=== PATIENT | female | born 1960 | race Caucasian/White ===

== ENCOUNTER → 2020-09-26 17:18 | Outpatient (CLI) | payer OTHER, SELFPAY ==
--- NOTE | ~2020-09-26 | XR_ITS ---
XR knee RT 3V 09/26/2020 18:58 Indication: Right knee pain Procedure: 3 views right knee Comparison: No prior studies for comparison. Findings: No fracture, subluxation or dislocation. There is a moderate joint effusion. Mild osteoarth ritis of the patellofemoral compartment. No foreign bodies. Impression: 1: Mild patellofemoral compartment osteoarthritis. 2: Moderate joint effusion. Reviewed, dictated and finalized at location A. Impression: 1: Mild patellofemoral compartment osteoarthritis. 2: Moderate joint effusion.
== END ==
PROVIDERS: PCP Family Medicine; Visit Provider Nurse Practitioner Family
DX: M17.11 Unilateral primary osteoarthritis, right knee (principal); M25.461 Effusion, right knee
CPT/HCPCS: 73562

== ENCOUNTER → 2021-06-14 08:11 | Outpatient (CLI) | payer OTHER, SELFPAY ==
--- NOTE | ~2021-06-14 | XR_ITS ---
XR foot LT min 3V DATE: 06/14/2021 08:32 INDICATION: Left foot pain TECHNIQUE: 4 views COMPARISON: None FINDINGS: There is plantar calcaneal enthesopathy without associated erosive change or periostitis. There is mild osteoarthritis at the first metatarsophalangeal joint. No fracture, dislocation, periosteal reaction or bone destruction. IMPRESSION: Plantar calcaneal enthesopathy Mild osteoarthritis at first metatarsophalangeal joint Reviewed, dictated and finalized at location A.
== END ==
PROVIDERS: PCP Nurse Practitioner Family; Visit Provider Nurse Practitioner Family
DX: M77.32 Calcaneal spur, left foot (principal); M19.072 Primary osteoarthritis, left ankle and foot
CPT/HCPCS: 73630

== ENCOUNTER 2021-07-22 07:37 | Outpatient (CLI) | payer OTHER, SELFPAY ==
--- NOTE | ~2021-07-22 | MR_ITS ---
EXAMINATION: MR foot LT wo/w con DATE: 07/22/2021 08:39 INDICATION: Soft tissue mass at the left foot third intermetatarsal space TECHNIQUE: Magnetic resonance imaging (MRI) of the left fore/mid foot was performed without and with 15 mL Multihance intravenous contrast. Sequences included axial, sagittal and coronal T1-weighted FSE , sagittal fluid sensitive FSE STIR, coronal PD-weighted FS FSE, axial T2-weighted FS FSE, axial T1-w eighted FS FSE and axial, sagittal and coronal T1-weighted FS FSE. COMPARISON: Left foot radiographs dated 06/14/2021 FINDINGS: Bone alignment is normal. No fracture or pathologic marrow replacing process. Severe osteoarthritis a t the articulation between the head of the first metatarsal and the fibular sesamoid with associated underlying subarticular edema-like marrow signal change and cystlike change at the plantar/lateral si de of the head of the first metatarsal. Additional mild marrow edema at the plantar aspect of the cub oid along the tunnel of the peroneus longus tendon. Small periarticular erosion versus cystic change at the medial aspect of the head of the first metatarsal. Additional mild osteoarthritis at the remai nder of the first metatarsophalangeal joint as well as a few tarsal metatarsal and interphalangeal edwina ints. Otherwise bone marrow signal throughout. No fracture or pathologic marrow replacing process. Th ere is a masslike region of globular decreased signal situated along the dorsolateral aspect of the t hird proximal phalanx. The lesion measures 2.8 cm proximal to distal, 1.7 cm dorsal to plantar and 1. 3 cm medial to lateral. No significant associated enhancement. The mass is also located more dorsal a nd distal stomach would be expected for a Pardo's neuroma. The Lisfranc ligament complex as well as the collateral ligament complex at the metatarsophalangeal and interphalangeal joints are normal. The flexor and extensor tendons are normal. Intrinsic musculature of the foot is unremarkable. IMPRESSION: 1. Nonspecific 2.8 x 1.7 x 1.3 cm relatively low signal intensity mass in the soft tissues lateral to the third proximal phalanx. No evident corresponding calcified matrix or bone lesion on the prior ra diographs. Differential would include gouty tophus, giant cell tumor of the tendon sheath (pigmented villonodular synovitis PVNS of the tendon sheath), foreign body granuloma or neoplasm, either benign or malignant such as synovial sarcoma. 2. Polyarticular osteoarthritis in the mid and forefoot, severe at the articulation of the first meta tarsal and fibular sesamoid, otherwise mild. Reviewed, dictated and finalized at location A. IMPRESSION: 1. Nonspecific 2.8 x 1.7 x 1.3 cm relatively low signal intensity mass in the s oft tissues lateral to the third proximal phalanx. No evident corresponding eileen cified matrix or bone lesion on the prior radiographs. Differential would inclu de gouty tophus, giant cell tumor of the tendon sheath (pigmented villonodular synovitis PVNS of the tendon sheath), foreign body granuloma or neoplasm, eithe r benign or malignant such as synovial sarcoma. 2. Polyarticular osteoarthritis in the mid and forefoot, severe at the articula tion of the first metatarsal and fibular sesamoid, otherwise mild.
[2021-07-22 08:10] LABS: Estimated Glomerular Filt Rate > 60
== END 2021-07-22 07:38 ==
PROVIDERS: PCP Family Medicine; Visit Provider Podiatrist Foot & Ankle Surgery
DX: R22.42 Localized swelling, mass and lump, left lower limb (principal); M19.072 Primary osteoarthritis, left ankle and foot
CPT/HCPCS: 73720; A9577

== ENCOUNTER → 2021-09-05 12:09 | Outpatient (CLI) | payer OTHER, SELFPAY ==
--- NOTE | ~2021-09-05 | MM_ITS ---
EXAMINATION: MM screening [facility] BI w felix HISTORY: Screening TECHNIQUE: Craniocaudal and mediolateral oblique 3-D tomosynthesis images were obtained and synthetic 2-D images were generated. CAD analysis was submitted and interpreted. COMPARISON: 09/09/2012 BREAST PARENCHYMAL COMPOSITION: There are scattered areas of fibroglandular density. FINDINGS: There is no evidence of suspicious mass, calcification, or architectural distortion to sugg est malignancy in either breast. There has been no suspicious interval change. IMPRESSION: 1. No mammographic evidence of malignancy. 2. Recommend routine screening mammography in one year. BI-RADS Category 1: Negative Reviewed, dictated and finalized at location A.
--- NOTE | ~2021-09-05 | DEXA_ITS ---
Bone Density Report Name: RAFAEL MADSEN Age: 60 Sex: Female Ethnicity: White Date of : 1960 Indication: postmenopausal; screening for osteoporosis; height loss; prior fracture; hysterectomy; Referring Provider: Ashlee Viveros Study: Bone densitometry was performed. Exam Date: September 05, 2021 Accession number: [id number] Bone Density: Region BMD T-score Z-score Classification AP Spine (L1-L4) 0.910 -1.2 0.2 Osteopenia Femoral Neck (Left) 0.792 -0.5 0.8 Normal Total Hip (Left) 0.874 -0.6 0.4 Normal Femoral Neck (Right) 0.805 -0.4 0.9 Normal Total Hip (Right) 0.881 -0.5 0.5 Normal Total Hip Mean 0.878 -0.6 0.5 Normal World Health Organization criteria for BMD impression classify patients as: Normal (T-score at or above -1.0), Osteopenia (T-score between -1.0 and -2.5), or Osteoporosis (T-score at or below -2.5). 10-year Fracture Risk: FRAX not reported because: Prior hip or vertebral fracture Clinical Information Provided by Patient: Have had a previous hip or vertebral fracture Has had a low trauma fracture Has used the following medications: Vitamin D Has the following medical conditions: Hysterectomy Patient maximum height was 69.5 Menopause Age: 28 Drinks caffeinated beverages Onset of menses at age 12 Number of children 1 Impression: The patient has low bone mass, based on the Total Spine T-score. The patient has risk factors, including: previous fracture. Discussion: INCREASED RISK OF FRACTURE DUE TO HISTORY OF FRACTURE. The patient's previous fracture puts the patient at high risk of a future fracture. In untreated patients, the risk of osteoporotic fracture increases approximately two-fold for each 1.0 SD decrease in T-score. Low bone density is not the only risk factor for fracture; also consider factors such as patient's age, frailty or poor health, risk of falling, risk of injury, previous osteoporotic fracture, family history of osteoporosis, cigarette smoking, low body weight, etc. Not everyone with a low trauma fracture has osteoporosis; osteomalacia and other metabolic bone disorders should also be considered. Patients who have osteoporosis should be evaluated for specific diseases and conditions (secondary causes) that may cause or contribute to bone loss and fracture risk. National Osteoporosis Foundation (NOF) recommends pharmacologic intervention for patients with a prior hip or vertebral fracture regardless of BMD T-score. The patient should follow a healthful lifestyle (good nutrition with adequate calcium and vitamin D, and appropriate weight-bearing exercise). Follow-Up: Consider a repeat BMD and Vertebral Fracture Assessment (VFA) exam in 2 years or sooner if medically necessary, to reassess this patient's status. Reported by: DIMITRIS on 09/05/2021 12:30:00 PM. ____
== END ==
PROVIDERS: PCP Family Medicine; Visit Provider Nurse Practitioner Family
DX: Z12.31 Encounter for screening mammogram for malignant neoplasm of breast (principal); Z13.820 Encounter for screening for osteoporosis; M85.88 Other specified disorders of bone density and structure, other site
CPT/HCPCS: 77063; 77067; 77080

== ENCOUNTER 2023-07-09 00:36 | Day surgery (SDC) | payer BC, SELFPAY ==
[2023-06-30 08:54] VITALS: BMI 24.4
[2023-07-09 06:50] VITALS: BP 119/81; PULSE 82; RESP 20; TEMP 36.3; O2SAT 98; BMI 24.5
[2023-07-09] MEDS: LACTATED RINGERS 1,000 ML 150 ML IV CONT (06:53)
--- NOTE | 2023-07-09 07:24 | WPDANESEPPF ---
Anes - Initial Pre Proc Eval Procedure: Operation Date: 07/09/23 08:00 Proposed Procedures p Screening Colonoscopy - Collin Jimenez MD Date/Time: 07/09/23 07:24 Surgeon: Collin Jimenez MD Pre Op Diagnosis: neoplasm screening Patient Data Age: 62 Gender: F Height: 1.75 m Weight: 75.4 kg Last Vital Signs Temp 97.3 F L 07/09/23 06:50 Pulse 82 07/09/23 06:50 Resp 20 07/09/23 06:50 BP 119/81 07/09/23 06:50 Pulse Ox 98 07/09/23 06:50 O2 Del Method Room Air 07/09/23 06:50 Allergies Allergy/AdvReac Type Severity Reaction Status Date / Time No Known Allergies Allergy Verified 07/09/23 06:49 Home Medications Medication Instructions Recorded Confirmed Type No Home Medications 06/30/23 07/09/23 History Patient hx anesthesia problems: none Family hx anesthesia problems: none Results Review: All pre-operative results and documents have been reviewed as part of the pre-operative evaluation. [facility] Past Medical History Medical History Seborrheic keratoses Family History Family History Father Carcinoma of colon Alzheimer disease COVID-19 Mother No problems noted. Sibling No problems noted. Social History Social History Smoking status: Former smoker Tobacco type: cigarettes Second hand tobacco smoke exposure: Yes Alcohol intake: current Drinks per week: 10 Substance use: former Substance use type: marijuana Do You Feel Safe in your Home?: Yes Lack of Transportation: No Lack of Food: Never True Current Housing: I Have Housing Concerned About Future Housing: No Difficulty Paying Gas/Electric Bills: No Difficulty Paying for Meds: No Currently Unemployed: No Education: High School Diploma/GED Difficulty w/ Childcare or Family Care: No Living arrangements: with family Occupation/Education: occupation 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 Informed Consent: The patient's anesthetic plan and its attendant risks and benefits were discussed with the patient/family/POA. Questions were solicited and answers provided to the satisfaction of the patient/family/POA.
--- NOTE | 2023-07-09 08:00 | P.HP_ITS ---
History of Present Illness History of Present Illness Consent: Risks, benefits, and alternatives have been discussed and questions answered. Patient agrees to proceed with procedure. Chief complaint: neoplasm screening Narrative: Matilda Orellana is a 62 year old female here for screening colonoscopy, last one 12 years ago Review of Systems Review of Systems: All systems reviewed & are unremarkable except as noted in HPI and below PMFSH Past Medical History Medical History Seborrheic keratoses Family History Family History Father Carcinoma of colon Alzheimer disease COVID-19 Mother No problems noted. Sibling No problems noted. Social History Social History Smoking status: Former smoker Tobacco type: cigarettes Second hand tobacco smoke exposure: Yes Alcohol intake: current Drinks per week: 10 Substance use: former Substance use type: marijuana Do You Feel Safe in your Home?: Yes Lack of Transportation: No Lack of Food: Never True Current Housing: I Have Housing Concerned About Future Housing: No Difficulty Paying Gas/Electric Bills: No Difficulty Paying for Meds: No Currently Unemployed: No Education: High School Diploma/GED Difficulty w/ Childcare or Family Care: No Living arrangements: with family Occupation/Education: occupation 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[employer] Gender identity (if verbalized by the patient): Female Spiritual care concerns: No Meds Home Medications and Allergies Home Medications Medication Instructions Recorded Confirmed Type No Home Medications 06/30/23 07/09/23 History Allergies Allergy/AdvReac Type Severity Reaction Status Date / Time No Known Allergies Allergy Verified 07/09/23 06:49 Vital Signs Vital Signs - 24 hr 07/09/23 06:50 Temperature 97.3 F L Pulse Rate 82 Respiratory Rate 20 Blood Pressure 119/81 Pulse Oximetry 98 Oxygen Delivery Room Air Exam Const: General: comfortable and no acute distress HENMT: Face/Nose/Sinus: Normal nares present Eyes: General: appearance normal, both eyes and all related structures Neck: Neck: no JVD Resp: Auscultation: clear to auscultation bilaterally Cardio: Rate: regular rate Rhythm: regular rhythm GI: Inspection: non-distended GI Palp: Yes Soft to palpation Skin: General skin exam: normal color Neuro: General: gait normal Speech: normal speech Extrem: General: normal to inspection Psych: Mental Status: mental status grossly normal Assessment and Plan Assessment and plan (1) Screening for malignant neoplasm of colon: Code(s): Z12.11 - Encounter for screening for malignant neoplasm of colon Status: Acute Assessment and Plan: colonoscopy
[2023-07-09 08:19] VITALS: BP 95/54; PULSE 68; RESP 20; O2SAT 97
[2023-07-09 08:29] VITALS: BP 98/52; PULSE 66; RESP 18; O2SAT 100
[2023-07-09 08:39] VITALS: BP 104/69; PULSE 58; RESP 18; O2SAT 99
== END 2023-07-09 08:42 | disposition home or self-care (01) ==
PROVIDERS: PCP Family Medicine; Visit Provider Internal Medicine Gastroenterology
PROC: 0DJD8ZZ Inspection of Lower Intestinal Tract, Via Natural or Artificial Opening Endoscopic (ICD-10-PCS; CPT 45378; principal; 2023-07-09 08:00)
DX: Z12.11 Encounter for screening for malignant neoplasm of colon (principal); K64.8 Other hemorrhoids; K57.30 Diverticulosis of large intestine without perforation or abscess without bleeding; L82.1 Other seborrheic keratosis; F12.90 Cannabis use, unspecified, uncomplicated; Z87.891 Personal history of nicotine dependence; Z80.0 Family history of malignant neoplasm of digestive organs
CPT/HCPCS: 45378; J2704; J7120

== ENCOUNTER 2023-09-29 10:31 | Outpatient (CLI) | payer BC, SELFPAY ==
--- NOTE | ~2023-09-29 | MM_ITS ---
EXAMINATION: MM screening [facility] BI w felix HISTORY: Screening TECHNIQUE: Craniocaudal and mediolateral oblique 3-D tomosynthesis images were obtained and synthetic 2-D images were generated. CAD analysis was submitted and interpreted. COMPARISON: Comparison to multiple prior studies sequentially, with oldest reviewed study dated 07/2011. BREAST PARENCHYMAL COMPOSITION: Not dense: There are scattered areas of fibroglandular density. FINDINGS: There is no evidence of suspicious mass, calcification, or architectural distortion to sugg est malignancy in either breast. There has been no suspicious interval change. IMPRESSION: 1. No mammographic evidence of malignancy. 2. Recommend routine screening mammography in one year. BI-RADS Category 1: Negative Reviewed, dictated and finalized at location B.
== END 2023-09-29 10:32 ==
LOC: MICIMG 10:33
PROVIDERS: PCP Physician Assistant; Visit Provider Physician Assistant
DX: Z12.31 Encounter for screening mammogram for malignant neoplasm of breast (principal)
CPT/HCPCS: 77063; 77067

== ENCOUNTER 2024-10-24 07:13 | Outpatient (CLI) | payer BC, SELFPAY ==
--- NOTE | ~2024-10-24 | MM_ITS ---
EXAMINATION: MM screening [facility] BI w felix HISTORY: Screening TECHNIQUE: Craniocaudal and mediolateral oblique 3-D tomosynthesis images were obtained and synthetic 2-D images were generated. CAD analysis was submitted and interpreted. COMPARISON: Comparison to multiple prior studies sequentially, with oldest reviewed study dated 2011. BREAST PARENCHYMAL COMPOSITION: There are scattered areas of fibroglandular density. FINDINGS: There is no evidence of suspicious mass, calcification, or architectural distortion to sug gest malignancy in either breast. IMPRESSION: 1. No mammographic evidence of malignancy. 2. Recommend routine screening mammography in one year. BI-RADS Category 1: Negative Reviewed, dictated and finalized at location B.
--- NOTE | ~2024-10-24 | DEXA_ITS ---
Bone Density Report Name: RAFAEL MADSEN Age: 64 Sex: Female Ethnicity: White Date of : 1960 Indication: osteopenia; hysterectomy; Referring Provider: VINCENT NEVAREZ Study: Bone densitometry was performed. Exam Date: October 24, 2024 Accession number: [id number] Bone Density: Region BMD T-score Z-score Classification AP Spine(L1-L4) 0.879 -1.5 0.2 Osteopenia Femoral Neck (Left) 0.817 -0.3 1.2 Normal Total Hip (Left) 0.870 -0.6 0.6 Normal Femoral Neck (Right) 0.767 -0.7 0.7 Normal Total Hip (Right) 0.842 -0.8 0.3 Normal Total Hip Mean 0.856 -0.7 0.5 Normal World Health Organization criteria for BMD impression classify patients as: Normal (T-score at or above -1.0), Osteopenia (T-score between -1.0 and -2.5), or Osteoporosis (T-score at or below -2.5). 10-year Fracture Risk(1): Major Osteoporotic Fracture 7.6% Hip Fracture 0.4% Reported Risk Factors: [place] (), Neck BMD=0.767, BMI=25.9 (1) FRAX(R) Version 3.08. Fracture probability calculated for an untreated patient. Fracture probability may be lower if the patient has received treatment. Previous Exams: -- Region Exam Age BMD T-score BMD Change BMD Change Date g/cm2 vs Baseline vs Previous -- AP Spine (L1-L4) 10/24/2024 64 0.879 -1.5 -3.5%* -3.5%* 09/05/2021 60 0.910 -1.2 Total Hip(Left) 10/24/2024 64 0.870 -0.6 -0.5% -0.5% 09/05/2021 60 0.874 -0.6 Total Hip(Right) 10/24/2024 64 0.842 -0.8 -4.4%* -4.4%* 09/05/2021 60 0.881 -0.5 -- *Denotes significance at 95% confidence level, LSC for AP Spine = 0.022 g/cm2, LSC for Total Hip = 0.027 g/cm2 Clinical Information Provided by Patient: Has the following medical conditions: Hysterectomy Patient maximum height was 69.0 Menopause Age: 28 No regular weight bearing exercise Drinks caffeinated beverages Onset of menses at age 12 Number of children 1 Impression: The patient has low bone mass, based on the Total Spine T-score. The patient has an estimated ten-year risk of hip fracture of 0.4% and an estimated ten-year risk of major fracture of 7.6%, based on the WHO FRAX algorithm. The BMD for the AP Spine (L1-L4) decreased, changing by -3.5% since the last DXA exam. The BMD for the Total Hip(Right) decreased, changing by -4.4% since the last DXA exam. Discussion: BONE DENSITY IS LOW AT ONE OR MORE SKELETAL SITES. This patient's lowest T-score is low at one or more skeletal sites. It meets the World Health Organization's (WHO) criteria for ?low bone mass? (T-score between -1.0 and -2.5). The patient's 10-year risk of fracture as calculated by FRAX is less than the threshold where pharmacological therapy is recommended by the National Osteoporosis Foundation (NOF). However, all treatment decisions require clinical judgment and consideration of individual patient factors, including patient preferences, comorbidities, previous drug use, risk factors not captured in the FRAX model (e.g., frailty, falls, vitamin D deficiency, increased bone turnover, interval significant decline in bone density) and possible under or overestimation of fracture risk by FRAX. The patient should follow a healthful lifestyle (good nutrition with adequate calcium and vitamin D, and appropriate weight-bearing exercise). Follow-Up: Consider repeating this study in 2 years to reassess this patient's status, or sooner if there is some new clinical indication. Reported by: DIMITRIS on 10/24/2024 8:07:00 AM. Reviewed, dictated and finalized at location A.
== END 2024-10-24 07:14 | disposition home or self-care (01) ==
LOC: MICIMG 07:14
PROVIDERS: PCP Family Medicine
DX: Z12.31 Encounter for screening mammogram for malignant neoplasm of breast (principal); Z78.0 Asymptomatic menopausal state; M85.88 Other specified disorders of bone density and structure, other site
CPT/HCPCS: 77063; 77067; 77080